=== PATIENT | female | born 1965 | race Caucasian/White ===

== ENCOUNTER 2020-05-02 10:24 | Outpatient (CLI) | payer BC ==
[2020-05-02] MEDS ORDERED: magnesium PO (10:55)
[2020-05-02] MEDS ORDERED: MULT-658 PO (10:55)
[2020-05-02] MEDS ORDERED: MULT-672 PO (10:55)
[2020-05-02] MEDS ORDERED: [UNRECOGNIZED DRUG - REMARK] PO (10:55)
[2020-05-02] MEDS ORDERED: GABA100C PO ×2 (10:55)
[2020-05-02] MEDS ORDERED: DULO60CA7 PO (10:55)
== END 2020-05-02 23:59 | disposition home or self-care (01) ==
LOC: STAR 10:24
PROVIDERS: ATTEND Surgery
DX: Z02.9 Encounter for administrative examinations, unspecified (principal)

== ENCOUNTER 2020-05-08 06:19 | Day surgery (SDC) | payer BC ==
[~2020-05-08] VITALS: Ht 165.1 cm; Wt 104.0 kg
[~2020-05-08 06:19] MED LIST: DULO60CA7 PO; GABA100C PO; MULT-658 PO; MULT-672 PO; [UNRECOGNIZED DRUG - REMARK] PO; magnesium PO
[2020-05-08] MEDS ORDERED: LACTATED RINGERS 1,000 ML IV SCH (07:03)
[2020-05-08 07:05] VITALS: BP 137/93
[2020-05-08] MEDS ORDERED: CHLORHEXIDINE 15 ML UDC ONE (07:09)
[2020-05-08] MEDS ORDERED: CHLORHEXIDINE 15 ML UDC MM ONE (07:30)
[2020-05-08] MEDS ORDERED: BUPIVACAINE/PF-EPI 0.5% 1:200K ONE (08:09)
[2020-05-08] MEDS ORDERED: FENTANYL PF 100 MCG/2ML ONE ×2 (08:15→08:56)
[2020-05-08] MEDS ORDERED: MIDAZOLAM 1 MG/ML, 2ML ONE (08:16)
[2020-05-08] MEDS ORDERED: KETOROLAC 30 MG/1 ML ONE (08:19)
[2020-05-08] MEDS ORDERED: ONDANSETRON 2MG/ML, 2ML ONE (08:19)
[2020-05-08] MEDS ORDERED: CEFAZOLIN 1,000 MG ONE (08:19)
[2020-05-08] MEDS ORDERED: PROPOFOL 10 MG/ML, 20ML ONE (08:19)
[2020-05-08] MEDS ORDERED: DEXAMETHASONE 4 MG/ML, 5ML ONE (08:19)
[2020-05-08] MEDS ORDERED: FENTANYL PF 100 MCG/2ML IV PRN (09:00)
[2020-05-08] MEDS ORDERED: ACETAMINOPHEN 325 MG TABLET PO PRN (09:00)
[2020-05-08] MEDS ORDERED: HYDROmorphone 1 MG/ML, 1ML INJ IVPush PRN (09:00)
[2020-05-08] MEDS ORDERED: hydrALAzine 20 MG/ML, 1ML IV PRN (09:00)
[2020-05-08] MEDS ORDERED: OXYcodone 5 MG/5 ML ORAL.SOL UDC PO PRN (09:00)
[2020-05-08] MEDS ORDERED: ONDANSETRON 2MG/ML, 2ML IVPush PRN (09:00)
[2020-05-08] MEDS ORDERED: LABETALOL 5MG/ML, 20ML IV PRN (09:00)
[2020-05-08] MEDS ORDERED: ACETAMINOPHEN 650 MG/20.3 ML UDC ONE (10:17)
[2020-05-08] MEDS ORDERED: OXYcodone 5 MG/5 ML ORAL.SOL UDC ONE (10:18)
== END 2020-05-08 12:00 | disposition home or self-care (01) ==
LOC: OUT 06:19
PROVIDERS: ATTEND Surgery
DX: K40.90 Unilateral inguinal hernia, without obstruction or gangrene, not specified as recurrent (principal); Z11.59 Encounter for screening for other viral diseases; E66.9 Obesity, unspecified; Z68.37 Body mass index [BMI] 37.0-37.9, adult; Z79.899 Other long term (current) drug therapy; Z88.2 Allergy status to sulfonamides; Z90.49 Acquired absence of other specified parts of digestive tract; Z90.710 Acquired absence of both cervix and uterus; Z98.84 Bariatric surgery status; Z98.890 Other specified postprocedural states
CPT/HCPCS: 49505; C1781; J0690; J1100; J1885; J2250; J2405; J2704; J3010; J7120; U0001